=== PATIENT | female | born 1985 | race Asian ===

== ENCOUNTER 2021-03-22 17:35 | Emergency (ER) | payer OTHER ==
[~2021-03-22] VITALS: Ht 160 cm; Wt 61.4 kg
[2021-03-22 18:12] LABS: COVID AG,FIA SOURCE NASOPHARYNGEAL
[2021-03-22 18:31] VITALS: BP 130/80
== END 2021-03-22 18:34 | disposition home or self-care (01) ==
LOC: EMS 17:40
DX: J02.9 Acute pharyngitis, unspecified (principal); Z20.822 Contact with and (suspected) exposure to COVID-19
CPT/HCPCS: 87426; 99283; U0003